=== PATIENT | male | born 2000 | race African-American/Black ===

== ENCOUNTER 2023-06-12 13:13 | Emergency (ER) | payer OTHER ==
[~2023-06-12] VITALS: Ht 172.7 cm; Wt 95.2 kg
[2023-06-12] MEDS ORDERED: ERYT5OIN25 OD (18:05)
[2023-06-12 18:17] VITALS: BP 162/90; TEMP 97.2; O2SAT 100
== END 2023-06-12 18:19 | disposition home or self-care (01) ==
LOC: M ED 13:13
DX: H00.011 Hordeolum externum right upper eyelid (principal); F17.290 Nicotine dependence, other tobacco product, uncomplicated; Z91.013 Allergy to seafood; Z91.010 Allergy to peanuts

== ENCOUNTER 2025-01-19 10:30 | Emergency (ER) | payer OTHER ==
[~2025-01-19] VITALS: Ht 170.2 cm; Wt 92.0 kg
[~2025-01-19 10:30] MED LIST: ERYT5OIN25 OD
[2025-01-19] MEDS: PROPARACAINE 0.5% OPHTH SOL 15ML OS ONE (13:45)
[2025-01-19] MEDS: FLUORESCEIN OPHTH 1 MG STRIP OS ONE (13:45)
[2025-01-19 14:43] VITALS: BP 132/68; TEMP 97.9; O2SAT 99
== END 2025-01-19 14:44 | disposition home or self-care (01) ==
LOC: M ED 10:30
DX: S00.12XA Contusion of left eyelid and periocular area, initial encounter (principal); H11.32 Conjunctival hemorrhage, left eye; Y92.410 Unspecified street and highway as the place of occurrence of the external cause; Y93.9 Activity, unspecified; Y99.9 Unspecified external cause status; Y04.0XXA Assault by unarmed brawl or fight, initial encounter; Z91.013 Allergy to seafood; Z91.018 Allergy to other foods; Z79.2 Long term (current) use of antibiotics